=== PATIENT | male | born 1955 | race Caucasian/White ===

== ENCOUNTER 2021-03-21 18:07 | Observation (INO) | payer OTHER ==
[2021-03-21 18:53] VITALS: BMI 22.4
[2021-03-21 21:16] LABS: BASO % 0.5 % (0-2.0); EOS % 0.6 % (0-4.5); HEMATOCRIT 47.7 % (35.4-49); HEMOGLOBIN 16.1 GM/dL (11.7-16.9); LYMPH % 14.9 % (8-40); MCH 30.1 pg (25.7-33.7); MCHC 33.7 g/dl (32.0-35.9); MEAN CELL VOLUME 89.2 fl (80-96); MEAN PLT VOLUME 9.1 fl (7.5-11.1); PLATELET COUNT 169 10^3/uL (134-434); RBC 5.34 M/mm3 (4.00-5.60); RDW 13.5 % (11.9-15.9); WHITE BLOOD COUNT 6.1 K/mm3 (4.0-10.0)
[2021-03-21 21:33] LABS: CHLORIDE 106 mmol/L (98-107); SODIUM 141 mmol/L (136-145)
[2021-03-21 21:35] LABS: CALCIUM 8.8 mg/dL (8.5-10.1)
[2021-03-21 21:36] LABS: ALBUMIN 3.8 g/dl (3.4-5.0); ANION GAP 9 MMOL/L (8-16); BLOOD UREA NITROGEN 23.5 mg/dL (7-18); CO2 27 mmol/L (21-32); GLUCOSE,RANDOM 134 mg/dL (74-106)
[2021-03-21 21:39] LABS: CREATININE 1.5 mg/dL (0.55-1.3); SGOT/AST 26 U/L (15-37); SGPT/ALT 30 U/L (13-61)
[2021-03-21 21:41] LABS: BILIRUBIN,TOTAL 0.7 mg/dL (0.2-1); TOT PROT 7.4 g/dl (6.4-8.2)
[2021-03-21 21:42] LABS: ALK PHOS 75 U/L (45-117)
[2021-03-21] MEDS ORDERED: SODIUM CHLORIDE 0.9% 500 ML INFUS.BAG IV ONE (22:10)
[2021-03-22] MEDS ORDERED: LORazepam 1 MG TABLET PO PRN (04:43)
[2021-03-22] MEDS: ENOXAPARIN NA (PORCINE) 40 MG/0.4 ML DISP.SYRIN SQ SCH (10:19)
[2021-03-22] MEDS: CHOLECALCIFEROL (VIT D3) 1,000 UNIT (25 MCG) TABLET PO SCH (11:00)
[2021-03-22] MEDS: LISINOPRIL 10 MG TABLET PO SCH (11:00)
[2021-03-23 08:58] LABS: BASO % 0.3 % (0-2.0); EOS % 2.2 % (0-4.5); HEMATOCRIT 43.7 % (35.4-49); HEMOGLOBIN 14.2 GM/dL (11.7-16.9); MCH 29.2 pg (25.7-33.7); MCHC 32.6 g/dl (32.0-35.9); MEAN CELL VOLUME 89.6 fl (80-96); MEAN PLT VOLUME 9.6 fl (7.5-11.1); MONO % 7.1 % (3.8-10.2); NEUT % 76.4 % (42.8-82.8); PLATELET COUNT 163 10^3/uL (134-434); RBC 4.88 M/mm3 (4.00-5.60); RDW 13.5 % (11.9-15.9); WHITE BLOOD COUNT 7.9 K/mm3 (4.0-10.0)
[2021-03-23 09:17] LABS: CALCIUM 8.6 mg/dL (8.5-10.1)
[2021-03-23 09:18] LABS: ALBUMIN 3.1 g/dl (3.4-5.0); BLOOD UREA NITROGEN 20.8 mg/dL (7-18); MAGNESIUM 2.6 mg/dL (1.8-2.4)
[2021-03-23 09:20] LABS: CREATININE 1.4 mg/dL (0.55-1.3)
[2021-03-23 09:21] LABS: PHOSPHOROUS 2.4 mg/dL (2.5-4.9)
[2021-03-23 09:22] LABS: BILIRUBIN,TOTAL 0.9 mg/dL (0.2-1)
[2021-03-23] MEDS: ENOXAPARIN NA (PORCINE) 40 MG/0.4 ML DISP.SYRIN SQ SCH (11:06)
[2021-03-23] MEDS: CHOLECALCIFEROL (VIT D3) 1,000 UNIT (25 MCG) TABLET PO SCH (11:06)
[2021-03-23] MEDS: LISINOPRIL 10 MG TABLET PO SCH (11:06)
[2021-03-24 07:19] VITALS: TEMP 98.2
[2021-03-24 09:28] LABS: BASO % 0.4 % (0-2.0); EOS % 3.7 % (0-4.5); HEMATOCRIT 46.6 % (35.4-49); HEMOGLOBIN 15.3 GM/dL (11.7-16.9); LYMPH % 19.5 % (8-40); MCH 29.5 pg (25.7-33.7); MEAN CELL VOLUME 89.4 fl (80-96); MEAN PLT VOLUME 9.5 fl (7.5-11.1); MONO % 10.3 % (3.8-10.2); NEUT % 66.1 % (42.8-82.8); PLATELET COUNT 174 10^3/uL (134-434); RBC 5.21 M/mm3 (4.00-5.60); RDW 13.5 % (11.9-15.9); WHITE BLOOD COUNT 4.8 K/mm3 (4.0-10.0)
[2021-03-24 09:48] LABS: ALBUMIN 3.3 g/dl (3.4-5.0); BLOOD UREA NITROGEN 18.6 mg/dL (7-18); CALCIUM 8.7 mg/dL (8.5-10.1)
[2021-03-24 09:49] LABS: MAGNESIUM 2.3 mg/dL (1.8-2.4)
[2021-03-24 09:51] LABS: CREATININE 1.3 mg/dL (0.55-1.3); PHOSPHOROUS 2.7 mg/dL (2.5-4.9)
[2021-03-24 09:53] LABS: BILIRUBIN,TOTAL 0.8 mg/dL (0.2-1); TOT PROT 6.6 g/dl (6.4-8.2)
[2021-03-24] MEDS: ENOXAPARIN NA (PORCINE) 40 MG/0.4 ML DISP.SYRIN SQ SCH (10:59)
[2021-03-24] MEDS: LISINOPRIL 10 MG TABLET PO SCH (11:00)
[2021-03-24] MEDS: CHOLECALCIFEROL (VIT D3) 1,000 UNIT (25 MCG) TABLET PO SCH (11:00)
[2021-03-24 15:51] VITALS: BP 121/76; PULSE 58
== END 2021-03-24 15:30 ==
LOC: JER 18:07 → JERBED 03-22 00:39 → J7W 03-22 02:24
PROVIDERS: ADMIT Hospitalist; ATTEND Internal Medicine
PROC: 3E023GC Introduction of Other Therapeutic Substance into Muscle, Percutaneous Approach (ICD-10-PCS; principal; 2021-03-22)
PROC: 3E0337Z Introduction of Electrolytic and Water Balance Substance into Peripheral Vein, Percutaneous Approach (ICD-10-PCS; 2021-03-22)
DX: U07.1 COVID-19 (principal); R05.9 Cough, unspecified; I10 Essential (primary) hypertension; F89 Unspecified disorder of psychological development; H91.90 Unspecified hearing loss, unspecified ear; Z29.9 Encounter for prophylactic measures, unspecified; N17.9 Acute kidney failure, unspecified
CPT/HCPCS: 36415; 71045-TC-FY; 80053; 82550; 82728; 83735; 84100; 84484; 85025; 85379; 86140; 93005; 93010; 96372; 97116-GP; 97161-GP; 99285-25; C9803; G0378; U0003; U0005

== ENCOUNTER 2023-05-14 20:44 | Observation (INO) | payer OTHER, BC ==
[2023-05-14 21:10] VITALS: BMI 22.4
[2023-05-14 23:21] LABS: HEMATOCRIT 46.4 % (35.4-49); MCH 30.9 pg (25.7-33.7); MCHC 34.4 g/dl (32.0-35.9); MEAN CELL VOLUME 89.7 fl (80-96); MEAN PLT VOLUME 8.9 fl (7.5-11.1); PLATELET COUNT 179 10^3/uL (134-434); RBC 5.17 M/mm3 (4.00-5.60); RDW 14.2 % (11.9-15.9); WHITE BLOOD COUNT 7.2 K/mm3 (4.0-10.0)
[2023-05-14 23:35] LABS: ALBUMIN 3.6 g/dl (3.4-5.0); BLOOD UREA NITROGEN 22.6 mg/dL (7-18); CALCIUM 8.8 mg/dL (8.5-10.1)
[2023-05-14 23:38] LABS: CREATININE 1.6 mg/dL (0.55-1.3)
[2023-05-14 23:40] LABS: BILIRUBIN,TOTAL 0.6 mg/dL (0.2-1)
[2023-05-15] MEDS: SODIUM CHLORIDE 0.9% 500 ML INFUS.BAG IV ONE (00:38)
[2023-05-15 02:31] LABS: EPI CELLS 4 /uL (0-25.1); HYALINE CASTS 0 /uL (0-3.1); URINE APPEARANCE CLEAR; URINE BACTERIA 3 /uL (0-1359); URINE BILIRUBIN NEGATIVE (NEGATIVE); URINE COLOR YELLOW; URINE GLUCOSE (UA) NEGATIVE (NEGATIVE); URINE KETONE NEGATIVE (NEGATIVE); URINE LEUK ESTERASE TRACE (NEGATIVE); URINE NITRITE NEGATIVE (NEGATIVE); URINE PROTEIN NEGATIVE (NEGATIVE); URINE RBC 8 /uL (0-23.9); URINE UROBILINOGEN 0.2 mg/dL (0.2-1.0); URINE WBC 21 /uL (0-25.8)
[2023-05-15] MEDS ORDERED: ACETAMINOPHEN 1000 MG/100 ML BAG IVPB PRN (02:36)
[2023-05-15] MEDS: SODIUM CHLORIDE 0.45% 1,000 ML IV SCH (04:57)
[2023-05-15] MEDS: ASCORBIC ACID 500 MG TABLET (FP) PO SCH (10:24)
[2023-05-15] MEDS: LISINOPRIL 10 MG TABLET PO SCH (10:24)
[2023-05-15] MEDS: CHOLECALCIFEROL (VIT D3) 1,000 UNIT (25 MCG) TABLET PO SCH (10:24)
[2023-05-16 07:54] LABS: POTASSIUM 4.5 mmol/L (3.5-5.1)
[2023-05-16 07:57] LABS: CALCIUM 8.4 mg/dL (8.5-10.1)
[2023-05-16 07:58] LABS: BLOOD UREA NITROGEN 21.8 mg/dL (7-18); MAGNESIUM 2.2 mg/dL (1.8-2.4)
[2023-05-16 08:01] LABS: CREATININE 1.4 mg/dL (0.55-1.3); PHOSPHOROUS 3.6 mg/dL (2.5-4.9)
[2023-05-16 08:40] LABS: BASO % 0.7 % (0-2.0); EOS % 4.2 % (0-4.5); HEMATOCRIT 44.1 % (35.4-49); HEMOGLOBIN 15.2 GM/dL (11.7-16.9); LYMPH % 25.3 % (8-40); MCH 30.9 pg (25.7-33.7); MCHC 34.4 g/dl (32.0-35.9); MEAN CELL VOLUME 89.8 fl (80-96); MONO % 9.3 % (3.8-10.2); NEUT % 60.5 % (42.8-82.8); PLATELET COUNT 169 10^3/uL (134-434); RBC 4.92 M/mm3 (4.00-5.60); RDW 14.3 % (11.9-15.9); WHITE BLOOD COUNT 5.3 K/mm3 (4.0-10.0)
[2023-05-16] MEDS: ACETAMINOPHEN 325 MG TABLET (FP) PO PRN (10:04)
[2023-05-16] MEDS: CEPHALEXIN MONOHYDRATE 500 MG CAPSULE (UD) PO SCH (13:10)
[2023-05-16 14:30] VITALS: BP 121/59; PULSE 56; RESP 17; TEMP 97.4
[2023-05-16] MEDS: ACETAMINOPHEN 1000 MG/100 ML BAG IVPB ONE (14:31)
[2023-05-16] MEDS: LIDOCAINE 4% PATCH TP ONE (14:48)
[2023-05-16] MEDS ORDERED: LIDOCAINE PATCH REMOVAL MC SCH (22:00)
== END 2023-05-16 18:00 | disposition short-term general hospital (02) ==
LOC: JER 20:44 → JERBED 05-15 00:56 → J4S 05-15 06:16
PROVIDERS: ADMIT Internal Medicine; ATTEND Internal Medicine
PROC: 3E033NZ Introduction of Analgesics, Hypnotics, Sedatives into Peripheral Vein, Percutaneous Approach (ICD-10-PCS; principal; 2023-05-15)
PROC: 3E0337Z Introduction of Electrolytic and Water Balance Substance into Peripheral Vein, Percutaneous Approach (ICD-10-PCS; 2023-05-15)
PROC: 3E033GC Introduction of Other Therapeutic Substance into Peripheral Vein, Percutaneous Approach (ICD-10-PCS; 2023-05-15)
DX: M79.604 Pain in right leg (principal); W18.39XA Other fall on same level, initial encounter; F81.9 Developmental disorder of scholastic skills, unspecified; Y93.89 Activity, other specified; Y92.099 Unspecified place in other non-institutional residence as the place of occurrence of the external cause; I10 Essential (primary) hypertension; N39.0 Urinary tract infection, site not specified; R29.6 Repeated falls; N17.9 Acute kidney failure, unspecified; H04.129 Dry eye syndrome of unspecified lacrimal gland; H91.90 Unspecified hearing loss, unspecified ear
CPT/HCPCS: 0241U-QW; 36415; 70450-TC; 71045-TC-FY; 72125-TC; 72128-TC; 72131-TC; 73552-TC-RT-FY; 80048; 80053; 81003; 83735; 84100; 84484; 85025; 85027; 87086; 87633; 93005; 93010; 93306-TC; 96361; 96374; 96375; 97116-GP; 97161-GP; 99285-25; G0378; J0131

== ENCOUNTER 2024-03-27 06:55 | Inpatient (IN) | payer OTHER, BC ==
[2024-03-27] MEDS ORDERED: ACETAMINOPHEN INJECTION 100 ML ONE (08:40)
[2024-03-27] MEDS: ACETAMINOPHEN 1000 MG/100 ML BAG IVPB ONE (08:45)
[2024-03-27 08:49] LABS: VENOUS BASE EXCESS 0.1 mmol/L (-2-2); VENOUS O2 SATURATION 69.2 % (70-80); VENOUS PH 7.438 (7.310-7.410)
[2024-03-27 08:53] LABS: INR 1.13 (0.83-1.09); PROTHROMBIN TIME (PATIENT) 12.7 SEC (9.7-13.0)
[2024-03-27 08:56] LABS: ACTIVATED PTT 29.1 SECONDS (25.2-36.5)
[2024-03-27 09:13] LABS: POTASSIUM 3.9 mmol/L (3.5-5.1)
[2024-03-27 09:15] LABS: HEMATOCRIT 45.7 % (35.4-49); HEMOGLOBIN 15.2 GM/dL (11.7-16.9); MCH 29.7 pg (25.7-33.7); MCHC 33.2 g/dl (32.0-35.9); MEAN CELL VOLUME 89.3 fl (80-96); MEAN PLT VOLUME 9.6 fl (7.5-11.1); PLATELET COUNT 153 10^3/uL (134-434); RBC 5.12 M/mm3 (4.00-5.60); WHITE BLOOD COUNT 8.5 K/mm3 (4.0-10.0)
[2024-03-27 09:16] LABS: ALBUMIN 3.6 g/dl (3.4-5.0); BLOOD UREA NITROGEN 16.6 mg/dL (7-18); CALCIUM 9.2 mg/dL (8.5-10.1); MAGNESIUM 2.1 mg/dL (1.8-2.4)
[2024-03-27 09:19] LABS: CREATININE 1.9 mg/dL (0.55-1.3)
[2024-03-27 09:20] LABS: BILIRUBIN,TOTAL 0.8 mg/dL (0.2-1)
[2024-03-27 09:21] LABS: TOT PROT 6.8 g/dl (6.4-8.2)
[2024-03-27 09:33] LABS: LACTIC ACID 3.4 mmol/L (0.4-2.0)
[2024-03-27 09:56] LABS: EPI CELLS 24 /uL (0-25.1); HYALINE CASTS 3 /uL (0-3.1); PH,URINE 5.5 (5.0-8.0); URINE APPEARANCE CLEAR; URINE BACTERIA 9 /uL (0-1359); URINE BILIRUBIN NEGATIVE (NEGATIVE); URINE COLOR YELLOW; URINE GLUCOSE (UA) NEGATIVE (NEGATIVE); URINE KETONE TRACE (NEGATIVE); URINE LEUK ESTERASE NEGATIVE (NEGATIVE); URINE NITRITE NEGATIVE (NEGATIVE); URINE PROTEIN 1+ (NEGATIVE); URINE RBC 52 /uL (0-23.9); URINE UROBILINOGEN 0.2 mg/dL (0.2-1.0); URINE WBC 21 /uL (0-25.8)
[2024-03-27] MEDS: SODIUM CHLORIDE 0.9% 500 ML INFUS.BAG IV ONE (10:15)
[2024-03-27] MEDS ORDERED: OSELTAMIVIR PHOSPHATE 75 MG CAPSULE ONE (10:35)
[2024-03-27] MEDS: OSELTAMIVIR PHOSPHATE 75 MG CAPSULE PO ONE (11:05)
[2024-03-27] MEDS ORDERED: HEPARIN NA (PORCINE) 5,000 UNITS/ML 1ML VIAL ONE (13:20)
[2024-03-27] MEDS: HEPARIN NA (PORCINE) 5,000 UNITS/ML 1ML VIAL SQ SCH (13:30)
[2024-03-28 07:53] LABS: HEMATOCRIT 45.2 % (35.4-49); HEMOGLOBIN 14.8 GM/dL (11.7-16.9); MCH 29.4 pg (25.7-33.7); MCHC 32.7 g/dl (32.0-35.9); MEAN PLT VOLUME 9.5 fl (7.5-11.1); PLATELET COUNT 136 10^3/uL (134-434); RBC 5.02 M/mm3 (4.00-5.60); RDW 14.2 % (11.9-15.9); WHITE BLOOD COUNT 5.4 K/mm3 (4.0-10.0)
[2024-03-28 08:11] LABS: POTASSIUM 3.9 mmol/L (3.5-5.1)
[2024-03-28 08:15] LABS: CALCIUM 8.4 mg/dL (8.5-10.1)
[2024-03-28 08:16] LABS: BLOOD UREA NITROGEN 17.9 mg/dL (7-18)
[2024-03-28 08:19] LABS: CREATININE 1.5 mg/dL (0.55-1.3)
[2024-03-28] MEDS ORDERED: ACETAMINOPHEN 325 MG TABLET (FP) PO PRN (10:30)
[2024-03-28] MEDS: ASCORBIC ACID 500 MG TABLET (FP) PO SCH (10:58)
[2024-03-28] MEDS: OSELTAMIVIR PHOSPHATE 30 MG CAPSULE PO SCH (10:58)
[2024-03-29 13:06] LABS: BASO % 0.2 % (0-2.0); EOS % 0.1 % (0-4.5); HEMATOCRIT 49.3 % (35.4-49); HEMOGLOBIN 16.4 GM/dL (11.7-16.9); LYMPH % 8.6 % (8-40); MCH 29.6 pg (25.7-33.7); MCHC 33.3 g/dl (32.0-35.9); MEAN CELL VOLUME 89.1 fl (80-96); MEAN PLT VOLUME 9.8 fl (7.5-11.1); MONO % 11.5 % (3.8-10.2); NEUT % 79.6 % (42.8-82.8); PLATELET COUNT 162 10^3/uL (134-434); RBC 5.54 M/mm3 (4.00-5.60); RDW 14.4 % (11.9-15.9)
[2024-03-29 13:18] LABS: POTASSIUM 4.3 mmol/L (3.5-5.1)
[2024-03-29 13:21] LABS: CALCIUM 8.9 mg/dL (8.5-10.1)
[2024-03-29 13:22] LABS: BLOOD UREA NITROGEN 26.2 mg/dL (7-18)
[2024-03-29 13:25] LABS: CREATININE 2.9 mg/dL (0.55-1.3)
[2024-03-29 20:23] LABS: POTASSIUM 4.1 mmol/L (3.5-5.1)
[2024-03-29 20:24] LABS: CALCIUM 8.6 mg/dL (8.5-10.1)
[2024-03-29 20:28] LABS: CREATININE 3.6 mg/dL (0.55-1.3)
[2024-03-29 20:55] LABS: BLOOD UREA NITROGEN 28.4 mg/dL (7-18)
[2024-03-29] MEDS: SODIUM CHLORIDE 1,000 ML IV SCH (22:19)
[2024-03-30 06:39] LABS: POTASSIUM 4.1 mmol/L (3.5-5.1)
[2024-03-30 06:45] LABS: BLOOD UREA NITROGEN 26.5 mg/dL (7-18); CALCIUM 8.1 mg/dL (8.5-10.1)
[2024-03-30 06:47] LABS: HEMATOCRIT 44.4 % (35.4-49); HEMOGLOBIN 14.6 GM/dL (11.7-16.9); MCH 29.5 pg (25.7-33.7); MCHC 32.9 g/dl (32.0-35.9); MEAN CELL VOLUME 89.7 fl (80-96); MEAN PLT VOLUME 9.6 fl (7.5-11.1); PLATELET COUNT 136 10^3/uL (134-434); RBC 4.95 M/mm3 (4.00-5.60); RDW 13.7 % (11.9-15.9)
[2024-03-30 06:48] LABS: CREATININE 2.5 mg/dL (0.55-1.3)
[2024-03-30 06:49] LABS: BILIRUBIN,TOTAL 0.8 mg/dL (0.2-1); TOT PROT 5.6 g/dl (6.4-8.2)
[2024-03-30 06:52] LABS: ALBUMIN 2.8 g/dl (3.4-5.0)
[2024-03-30] MEDS: TAMSULOSIN HCL 0.4 MG CAP PO ONE (10:45)
[2024-03-30 16:05] VITALS: BMI 24.4
[2024-03-31 08:41] LABS: BASO % 0.5 % (0-2.0); EOS % 5.3 % (0-4.5); HEMATOCRIT 41.6 % (35.4-49); LYMPH % 20.1 % (8-40); MCH 29.8 pg (25.7-33.7); MCHC 33.5 g/dl (32.0-35.9); MEAN CELL VOLUME 88.9 fl (80-96); MEAN PLT VOLUME 9.1 fl (7.5-11.1); MONO % 10.1 % (3.8-10.2); PLATELET COUNT 118 10^3/uL (134-434); RBC 4.69 M/mm3 (4.00-5.60); RDW 14.1 % (11.9-15.9); WHITE BLOOD COUNT 5.9 K/mm3 (4.0-10.0)
[2024-03-31] MEDS: TAMSULOSIN HCL 0.4 MG CAP PO SCH (08:46)
[2024-03-31 09:04] LABS: POTASSIUM 4.2 mmol/L (3.5-5.1)
[2024-03-31 09:10] LABS: CALCIUM 7.9 mg/dL (8.5-10.1)
[2024-03-31 09:11] LABS: ALBUMIN 2.4 g/dl (3.4-5.0); BLOOD UREA NITROGEN 23.4 mg/dL (7-18)
[2024-03-31 09:14] LABS: CREATININE 1.3 mg/dL (0.55-1.3)
[2024-03-31 09:16] LABS: BILIRUBIN,TOTAL 0.7 mg/dL (0.2-1); TOT PROT 5.1 g/dl (6.4-8.2)
[2024-04-01 08:29] LABS: BASO % 0.6 % (0-2.0); EOS % 5.7 % (0-4.5); HEMATOCRIT 43.6 % (35.4-49); HEMOGLOBIN 14.9 GM/dL (11.7-16.9); LYMPH % 21.8 % (8-40); MCHC 34.1 g/dl (32.0-35.9); MEAN PLT VOLUME 9.6 fl (7.5-11.1); MONO % 10.7 % (3.8-10.2); NEUT % 61.2 % (42.8-82.8); PLATELET COUNT 140 10^3/uL (134-434); RBC 4.95 M/mm3 (4.00-5.60); RDW 14.1 % (11.9-15.9); WHITE BLOOD COUNT 4.2 K/mm3 (4.0-10.0)
[2024-04-01 09:17] LABS: BLOOD UREA NITROGEN 22.2 mg/dL (7-18); CALCIUM 8.4 mg/dL (8.5-10.1)
[2024-04-01 09:20] LABS: CREATININE 1.2 mg/dL (0.55-1.3)
[2024-04-01] MEDS: LACTATED RINGERS SOLUTION 1,000 ML/1,000 ML INFUS.BAG IV SCH (21:55)
[2024-04-02 06:59] VITALS: RESP 18
[2024-04-02 07:34] LABS: POTASSIUM 4.2 mmol/L (3.5-5.1)
[2024-04-02 07:42] LABS: CALCIUM 8.4 mg/dL (8.5-10.1)
[2024-04-02 07:43] LABS: ALBUMIN 2.6 g/dl (3.4-5.0); BLOOD UREA NITROGEN 17.8 mg/dL (7-18)
[2024-04-02 07:46] LABS: CREATININE 1.2 mg/dL (0.55-1.3)
[2024-04-02 07:47] LABS: BILIRUBIN,TOTAL 0.8 mg/dL (0.2-1); TOT PROT 5.5 g/dl (6.4-8.2)
[2024-04-02 18:12] VITALS: BP 141/80; PULSE 68; TEMP 97.7
== END 2024-04-02 18:58 | DRG 684 ==
LOC: JER 06:55 → JERBED 10:30 → J7W 18:56 → OBSVTOIN 03-30 11:24
PROVIDERS: ADMIT Internal Medicine; ATTEND Internal Medicine
DX: N17.9 Acute kidney failure, unspecified (principal); J10.1 Influenza due to other identified influenza virus with other respiratory manifestations; N40.1 Benign prostatic hyperplasia with lower urinary tract symptoms; R33.8 Other retention of urine; R62.50 Unspecified lack of expected normal physiological development in childhood; N13.9 Obstructive and reflux uropathy, unspecified; E86.0 Dehydration; I12.9 Hypertensive chronic kidney disease with stage 1 through stage 4 chronic kidney disease, or unspecified chronic kidney disease; N18.9 Chronic kidney disease, unspecified; E78.5 Hyperlipidemia, unspecified; F81.9 Developmental disorder of scholastic skills, unspecified; W06.XXXA Fall from bed, initial encounter; Y92.122 Bedroom in nursing home as the place of occurrence of the external cause; Y99.9 Unspecified external cause status
CPT/HCPCS: 0241U-QW; 36415; 70450-TC; 71045-TC-FY; 72125-TC; 76775-TC; 76856-TC; 80048; 80053; 81003; 82550; 82553; 82803; 82962; 83605; 83735; 84443; 84484; 85025; 85027; 85610; 85730; 86850; 86900; 86901; 87040; 87086; 93005; 93010; 97116-GP; 97161-GP; 99285-25; G0378; J0131; J1644

== ENCOUNTER 2024-04-20 19:12 | Inpatient (IN) | payer OTHER, BC ==
[2024-04-20 21:11] LABS: EPI CELLS 16 /uL (0-25.1); HYALINE CASTS 1 /uL (0-3.1); PH,URINE 5.5 (5.0-8.0); URINE APPEARANCE TURBID; URINE BACTERIA 56 /uL (0-1359); URINE BILIRUBIN NEGATIVE (NEGATIVE); URINE COLOR YELLOW; URINE GLUCOSE (UA) NEGATIVE (NEGATIVE); URINE KETONE TRACE (NEGATIVE); URINE LEUK ESTERASE 3+ (NEGATIVE); URINE NITRITE NEGATIVE (NEGATIVE); URINE PROTEIN 3+ (NEGATIVE); URINE RBC 0 /uL (0-23.9); URINE UROBILINOGEN 0.2 mg/dL (0.2-1.0); URINE WBC 3 /uL (0-25.8)
[2024-04-20 21:31] LABS: BASO % 0.3 % (0-2.0); EOS % 1.4 % (0-4.5); MCH 29.2 pg (25.7-33.7); MCHC 32.7 g/dl (32.0-35.9); MEAN CELL VOLUME 89.3 fl (80-96); MONO % 11.9 % (3.8-10.2); NEUT % 80.4 % (42.8-82.8); RBC 6.16 M/mm3 (4.00-5.60); RDW 14.4 % (11.9-15.9); WHITE BLOOD COUNT 13.2 K/mm3 (4.0-10.0)
[2024-04-20 21:51] LABS: CHLORIDE 98 mmol/L (98-107); SODIUM 136 mmol/L (136-145)
[2024-04-20] MEDS ORDERED: CEFTRIAXONE 1 G/50 ML PREMIX 50 ML IVPB ONE (21:51)
[2024-04-20 21:52] LABS: CALCIUM 8.5 mg/dL (8.5-10.1); POTASSIUM 6.1 mmol/L (3.5-5.1)
[2024-04-20 21:53] LABS: ALBUMIN 2.8 g/dl (3.4-5.0); ANION GAP 18 mmol/L (4-13); CO2 20 mmol/L (21-32); GLUCOSE,RANDOM 123 mg/dL (74-106)
[2024-04-20 21:56] LABS: SGOT/AST 21 U/L (15-37); SGPT/ALT 56 U/L (13-61)
[2024-04-20 21:58] LABS: BILIRUBIN,TOTAL 0.8 mg/dL (0.2-1); CREATININE 14.2 mg/dL (0.55-1.3)
[2024-04-20] MEDS: SODIUM CHLORIDE 0.9% 500 ML INFUS.BAG IV ONE ×2 (21:58→22:41)
[2024-04-20] MEDS: CEFTRIAXONE 1 GM in DEXTROSE 5%-WATER - 50 ML IVPB ONE (21:58)
[2024-04-20 21:59] LABS: ALK PHOS 59 U/L (45-117)
[2024-04-20 22:08] LABS: INR 0.97 (0.83-1.09); PROTHROMBIN TIME (PATIENT) 10.7 SEC (9.7-13.0)
[2024-04-20] MEDS ORDERED: DEXTROSE 50%-WATER 25 GM/50 ML DISP.SYRIN ONE (22:30)
[2024-04-20 22:31] LABS: ANISOCYTOSIS 1+; MACROCYTOSIS 0; OVALOCYTE 1+
[2024-04-20 22:32] LABS: PLATELET COUNT 48 10^3/uL (134-434)
[2024-04-20] MEDS ORDERED: INSULIN REGULAR HUMAN 100 UNITS/ML *VIAL ONE (22:32)
[2024-04-20 22:33] LABS: MEAN PLT VOLUME 12.6 fl (7.5-11.1)
[2024-04-20] MEDS: DEXTROSE 50%-WATER 25 GM/50 ML DISP.SYRIN IVPUSH ONE (22:41)
[2024-04-20] MEDS: INSULIN REGULAR HUMAN 100 UNITS/ML *VIAL IVPUSH ONE (22:41)
[2024-04-20] MEDS: CALCIUM GLUCONATE 10% - 1,000 MG/10 ML VIAL IVPUSH ONE (22:42)
[2024-04-21 01:04] LABS: CHLORIDE 107 mmol/L (98-107); POTASSIUM 5.3 mmol/L (3.5-5.1); SODIUM 141 mmol/L (136-145)
[2024-04-21 01:05] LABS: CALCIUM 7.3 mg/dL (8.5-10.1)
[2024-04-21 01:06] LABS: ANION GAP 18 mmol/L (4-13); CO2 16 mmol/L (21-32); GLUCOSE,RANDOM 95 mg/dL (74-106)
[2024-04-21 01:13] LABS: BLOOD UREA NITROGEN 161.7 mg/dL (7-18); CREATININE 13.8 mg/dL (0.55-1.3)
[2024-04-21] MEDS: SODIUM CHLORIDE 1,000 ML IV SCH ×2 (06:55→22:53)
[2024-04-21 07:28] LABS: HEMATOCRIT 50.5 % (35.4-49); HEMOGLOBIN 16.6 GM/dL (11.7-16.9); MCH 29.5 pg (25.7-33.7); MCHC 32.8 g/dl (32.0-35.9); MEAN CELL VOLUME 89.9 fl (80-96); MEAN PLT VOLUME 10.9 fl (7.5-11.1); RBC 5.61 M/mm3 (4.00-5.60); RDW 14.5 % (11.9-15.9); WHITE BLOOD COUNT 11.4 K/mm3 (4.0-10.0)
[2024-04-21 07:43] LABS: CHLORIDE 104 mmol/L (98-107); POTASSIUM 5.4 mmol/L (3.5-5.1); SODIUM 141 mmol/L (136-145)
[2024-04-21 07:44] LABS: PLATELET COUNT 36 10^3/uL (134-434)
[2024-04-21 07:45] LABS: CALCIUM 7.9 mg/dL (8.5-10.1)
[2024-04-21 07:46] LABS: ALBUMIN 2.5 g/dl (3.4-5.0); ANION GAP 22 mmol/L (4-13); CO2 15 mmol/L (21-32); GLUCOSE,RANDOM 85 mg/dL (74-106)
[2024-04-21 07:49] LABS: SGOT/AST 19 U/L (15-37); SGPT/ALT 46 U/L (13-61)
[2024-04-21 07:50] LABS: BILIRUBIN,TOTAL 0.6 mg/dL (0.2-1)
[2024-04-21 07:52] LABS: ALK PHOS 50 U/L (45-117)
[2024-04-21 07:58] LABS: BLOOD UREA NITROGEN 171.7 mg/dL (7-18); CREATININE 13.8 mg/dL (0.55-1.3)
[2024-04-21] MEDS: SODIUM CHLORIDE 0.45% 1,000 ML IV SCH (10:41)
[2024-04-21] MEDS: SODIUM CHLORIDE 500 ML IV STA (10:42)
[2024-04-21] MEDS: SODIUM ZIRCONIUM CYCLOSILICATE (LOKELMA) 5 GM PACKET PO SCH ×2 (10:42→22:53)
[2024-04-21 11:37] LABS: ANISOCYTOSIS 0; HELMET CELLS 0; HOWELL-JOLLY BODIES 0; MACROCYTOSIS 0; OVALOCYTE 0; ROULEAU 0; SICKELED CELLS 0; TARGET CELLS 0; TEAR DROP CELLS 0; TOXIC GRANULATION 0
[2024-04-21] MEDS: SODIUM BICARBONATE 650 MG TABLET PO SCH (13:23)
[2024-04-21 15:39] LABS: BASO % 0.2 % (0-2.0); EOS % 2.7 % (0-4.5); HEMATOCRIT 50.8 % (35.4-49); HEMOGLOBIN 16.4 GM/dL (11.7-16.9); LYMPH % 6.5 % (8-40); MCH 29.3 pg (25.7-33.7); MCHC 32.2 g/dl (32.0-35.9); MEAN PLT VOLUME 10.9 fl (7.5-11.1); MONO % 15.3 % (3.8-10.2); NEUT % 75.3 % (42.8-82.8); PLATELET COUNT 50 10^3/uL (134-434); RBC 5.58 M/mm3 (4.00-5.60); RDW 14.7 % (11.9-15.9); WHITE BLOOD COUNT 14.2 K/mm3 (4.0-10.0)
[2024-04-21 16:02] LABS: CHLORIDE 107 mmol/L (98-107); POTASSIUM 5.6 mmol/L (3.5-5.1); SODIUM 141 mmol/L (136-145)
[2024-04-21 16:08] LABS: ALBUMIN 2.4 g/dl (3.4-5.0); ANION GAP 21 mmol/L (4-13); CO2 14 mmol/L (21-32); GLUCOSE,RANDOM 101 mg/dL (74-106)
[2024-04-21 16:11] LABS: SGOT/AST 17 U/L (15-37); SGPT/ALT 41 U/L (13-61)
[2024-04-21 16:12] LABS: BILIRUBIN,TOTAL 0.6 mg/dL (0.2-1)
[2024-04-21 16:13] LABS: TOT PROT 5.8 g/dl (6.4-8.2)
[2024-04-21 16:14] LABS: ALK PHOS 51 U/L (45-117)
[2024-04-21 16:27] LABS: BLOOD UREA NITROGEN 175.6 mg/dL (7-18)
[2024-04-22 07:35] LABS: HEMATOCRIT 43.3 % (35.4-49); HEMOGLOBIN 14.2 GM/dL (11.7-16.9); MCH 29.3 pg (25.7-33.7); MCHC 32.8 g/dl (32.0-35.9); MEAN CELL VOLUME 89.1 fl (80-96); MEAN PLT VOLUME 11.3 fl (7.5-11.1); PLATELET COUNT 65 10^3/uL (134-434); RBC 4.86 M/mm3 (4.00-5.60); RDW 14.4 % (11.9-15.9); WHITE BLOOD COUNT 11.2 K/mm3 (4.0-10.0)
[2024-04-22 07:57] LABS: CHLORIDE 108 mmol/L (98-107); POTASSIUM 5.2 mmol/L (3.5-5.1); SODIUM 141 mmol/L (136-145)
[2024-04-22 08:17] LABS: CALCIUM 7.6 mg/dL (8.5-10.1)
[2024-04-22 08:18] LABS: ANION GAP 22 mmol/L (4-13); CO2 11 mmol/L (21-32); GLUCOSE,RANDOM 97 mg/dL (74-106)
[2024-04-22 08:19] LABS: SGOT/AST 16 U/L (15-37); SGPT/ALT 32 U/L (13-61)
[2024-04-22 08:20] LABS: BILIRUBIN,TOTAL 0.5 mg/dL (0.2-1)
[2024-04-22 08:22] LABS: ALK PHOS 46 U/L (45-117)
[2024-04-22 08:30] LABS: BLOOD UREA NITROGEN 179.7 mg/dL (7-18); CREATININE 14.1 mg/dL (0.55-1.3)
[2024-04-22] MEDS ORDERED: SODIUM CHLORIDE 250 ML IV PRN (11:01)
[2024-04-23 08:42] LABS: HEMOGLOBIN 15.6 GM/dL (11.7-16.9); MCHC 34.7 g/dl (32.0-35.9); MEAN CELL VOLUME 86.5 fl (80-96); MEAN PLT VOLUME 10.4 fl (7.5-11.1); PLATELET COUNT 88 10^3/uL (134-434); RBC 5.21 M/mm3 (4.00-5.60); RDW 14.5 % (11.9-15.9); WHITE BLOOD COUNT 12.3 K/mm3 (4.0-10.0)
[2024-04-23 09:04] LABS: CHLORIDE 104 mmol/L (98-107); POTASSIUM 4.2 mmol/L (3.5-5.1); SODIUM 141 mmol/L (136-145)
[2024-04-23 09:11] LABS: ANION GAP 17 mmol/L (4-13); CALCIUM 7.5 mg/dL (8.5-10.1); CO2 20 mmol/L (21-32); GLUCOSE,RANDOM 112 mg/dL (74-106)
[2024-04-23 09:14] LABS: SGOT/AST 14 U/L (15-37); SGPT/ALT 28 U/L (13-61)
[2024-04-23 09:16] LABS: BILIRUBIN,TOTAL 0.8 mg/dL (0.2-1); TOT PROT 5.4 g/dl (6.4-8.2)
[2024-04-23 09:17] LABS: ALK PHOS 49 U/L (45-117)
[2024-04-23 09:26] LABS: BLOOD UREA NITROGEN 118.1 mg/dL (7-18); CREATININE 10.7 mg/dL (0.55-1.3)
[2024-04-23] MEDS: HEPARIN NA (PORCINE) 5,000 UNITS/ML 1ML VIAL IVPUSH ONE (11:00)
[2024-04-23] MEDS ORDERED: SODIUM CHLORIDE 250 ML IV PRN (12:00)
[2024-04-23] MEDS: SODIUM CHLORIDE 0.45% 1,000 ML IV SCH (15:47)
[2024-04-23] MEDS: ACETAMINOPHEN 325 MG TABLET (FP) PO ONE (23:03)
[2024-04-23] MEDS: MELATONIN 5 MG TABLETS PO ONE (23:30)
[2024-04-24] MEDS: SODIUM ZIRCONIUM CYCLOSILICATE (LOKELMA) 5 GM PACKET PO SCH (09:20)
[2024-04-25 08:15] LABS: HEMATOCRIT 39.7 % (35.4-49); HEMOGLOBIN 13.3 GM/dL (11.7-16.9); MCH 29.5 pg (25.7-33.7); MCHC 33.5 g/dl (32.0-35.9); MEAN CELL VOLUME 88.2 fl (80-96); MEAN PLT VOLUME 9.9 fl (7.5-11.1); PLATELET COUNT 142 10^3/uL (134-434); RDW 14.1 % (11.9-15.9); WHITE BLOOD COUNT 12.8 K/mm3 (4.0-10.0)
[2024-04-25 08:43] LABS: CHLORIDE 104 mmol/L (98-107); POTASSIUM 3.9 mmol/L (3.5-5.1); SODIUM 138 mmol/L (136-145)
[2024-04-25 08:51] LABS: ANION GAP 11 mmol/L (4-13); CALCIUM 7.4 mg/dL (8.5-10.1); CO2 23 mmol/L (21-32); GLUCOSE,RANDOM 106 mg/dL (74-106)
[2024-04-25 08:52] LABS: ALBUMIN 1.8 g/dl (3.4-5.0); BLOOD UREA NITROGEN 83.8 mg/dL (7-18)
[2024-04-25 08:55] LABS: SGOT/AST 11 U/L (15-37); SGPT/ALT 19 U/L (13-61)
[2024-04-25 08:56] LABS: BILIRUBIN,TOTAL 0.5 mg/dL (0.2-1); TOT PROT 4.8 g/dl (6.4-8.2)
[2024-04-25 08:57] LABS: ALK PHOS 45 U/L (45-117); CREATININE 7.6 mg/dL (0.55-1.3)
[2024-04-25 11:40] LABS: ANISOCYTOSIS 0; HELMET CELLS 0; HOWELL-JOLLY BODIES 0; MACROCYTOSIS 0; OVALOCYTE 0; ROULEAU 0; SICKELED CELLS 0; TARGET CELLS 0; TEAR DROP CELLS 0; TOXIC GRANULATION 0
[2024-04-26 11:49] LABS: POTASSIUM 3.3 mmol/L (3.5-5.1)
[2024-04-26 11:50] LABS: BASO % 0.5 % (0-2.0); EOS % 2.2 % (0-4.5); HEMATOCRIT 40.5 % (35.4-49); HEMOGLOBIN 13.2 GM/dL (11.7-16.9); LYMPH % 6.5 % (8-40); MCH 29.1 pg (25.7-33.7); MCHC 32.7 g/dl (32.0-35.9); MEAN CELL VOLUME 89.1 fl (80-96); MEAN PLT VOLUME 9.6 fl (7.5-11.1); NEUT % 84.8 % (42.8-82.8); PLATELET COUNT 207 10^3/uL (134-434); RBC 4.55 M/mm3 (4.00-5.60); RDW 13.7 % (11.9-15.9); WHITE BLOOD COUNT 13.3 K/mm3 (4.0-10.0)
[2024-04-26 11:51] LABS: ALBUMIN 2.1 g/dl (3.4-5.0); CALCIUM 7.7 mg/dL (8.5-10.1)
[2024-04-26 11:52] LABS: BLOOD UREA NITROGEN 77.4 mg/dL (7-18)
[2024-04-26 11:55] LABS: CREATININE 6.8 mg/dL (0.55-1.3); PHOSPHOROUS 5.5 mg/dL (2.5-4.9)
[2024-04-26 11:56] LABS: BILIRUBIN,TOTAL 0.5 mg/dL (0.2-1); TOT PROT 5.2 g/dl (6.4-8.2)
[2024-04-26] MEDS: POTASSIUM CHLORIDE ORAL LIQUID 20 MEQ/15 ML PO ONE (12:40)
[2024-04-26 23:06] LABS: ANTIGLOMERULAR BASEMENT MEN.AB <0.2 units (0.0-0.9); C-ANCA <1:20 titer (Neg:<1:20)
[2024-04-27 08:31] LABS: BASO % 1.3 % (0-2.0); EOS % 1.3 % (0-4.5); HEMATOCRIT 37.3 % (35.4-49); HEMOGLOBIN 12.4 GM/dL (11.7-16.9); LYMPH % 6.6 % (8-40); MCH 29.4 pg (25.7-33.7); MCHC 33.3 g/dl (32.0-35.9); MEAN CELL VOLUME 88.4 fl (80-96); MEAN PLT VOLUME 9.4 fl (7.5-11.1); MONO % 7.1 % (3.8-10.2); NEUT % 83.7 % (42.8-82.8); PLATELET COUNT 200 10^3/uL (134-434); RBC 4.22 M/mm3 (4.00-5.60); RDW 13.8 % (11.9-15.9); WHITE BLOOD COUNT 14.5 K/mm3 (4.0-10.0)
[2024-04-27 08:47] LABS: POTASSIUM 3.5 mmol/L (3.5-5.1)
[2024-04-27 08:51] LABS: CALCIUM 7.6 mg/dL (8.5-10.1)
[2024-04-27 08:52] LABS: ALBUMIN 1.9 g/dl (3.4-5.0); BLOOD UREA NITROGEN 66.2 mg/dL (7-18)
[2024-04-27 08:55] LABS: CREATININE 5.8 mg/dL (0.55-1.3); PHOSPHOROUS 5.4 mg/dL (2.5-4.9)
[2024-04-27 08:56] LABS: BILIRUBIN,TOTAL 0.6 mg/dL (0.2-1); TOT PROT 4.8 g/dl (6.4-8.2)
[2024-04-27 19:39] VITALS: BMI 23.1
[2024-04-28 08:07] LABS: POTASSIUM 3.5 mmol/L (3.5-5.1)
[2024-04-28 08:11] LABS: BLOOD UREA NITROGEN 52.5 mg/dL (7-18); CALCIUM 7.4 mg/dL (8.5-10.1)
[2024-04-28 08:16] LABS: CREATININE 4.4 mg/dL (0.55-1.3)
[2024-04-28 08:17] LABS: BILIRUBIN,TOTAL 0.6 mg/dL (0.2-1); TOT PROT 5.1 g/dl (6.4-8.2)
[2024-04-29 08:12] LABS: EOS % 1.8 % (0-4.5); HEMATOCRIT 34.4 % (35.4-49); HEMOGLOBIN 11.4 GM/dL (11.7-16.9); LYMPH % 8.2 % (8-40); MCH 29.5 pg (25.7-33.7); MCHC 33.2 g/dl (32.0-35.9); MEAN CELL VOLUME 88.8 fl (80-96); MEAN PLT VOLUME 9.2 fl (7.5-11.1); MONO % 8.9 % (3.8-10.2); NEUT % 80.1 % (42.8-82.8); PLATELET COUNT 231 10^3/uL (134-434); RBC 3.88 M/mm3 (4.00-5.60); RDW 13.5 % (11.9-15.9); WHITE BLOOD COUNT 11.3 K/mm3 (4.0-10.0)
[2024-04-29 08:28] LABS: POTASSIUM 3.5 mmol/L (3.5-5.1)
[2024-04-29 08:45] LABS: BLOOD UREA NITROGEN 42.4 mg/dL (7-18); CALCIUM 7.7 mg/dL (8.5-10.1)
[2024-04-29 08:47] LABS: TOT PROT 5.1 g/dl (6.4-8.2)
[2024-04-29 08:49] LABS: CREATININE 3.5 mg/dL (0.55-1.3)
[2024-04-29 08:50] LABS: BILIRUBIN,TOTAL 0.6 mg/dL (0.2-1)
[2024-04-29 15:36] VITALS: RESP 18
[2024-04-29 19:52] VITALS: PULSE 69
[2024-04-29 21:15] VITALS: BP 132/70; TEMP 97.4
== END 2024-04-29 20:45 | DRG 683 ==
LOC: JER 19:12 → JERBED 22:09 → J4W 04-21 05:12
PROVIDERS: ADMIT Student in an Organized Health Care Education/Training Program; ATTEND Internal Medicine
PROC: 05HM33Z Insertion of Infusion Device into Right Internal Jugular Vein, Percutaneous Approach (ICD-10-PCS; principal; 2024-04-22)
PROC: B543ZZA Ultrasonography of Right Jugular Veins, Guidance (ICD-10-PCS; 2024-04-22)
PROC: 06HM33Z Insertion of Infusion Device into Right Femoral Vein, Percutaneous Approach (ICD-10-PCS; 2024-04-22)
DX: N17.9 Acute kidney failure, unspecified (principal); N39.0 Urinary tract infection, site not specified; E87.5 Hyperkalemia; D69.6 Thrombocytopenia, unspecified; F81.9 Developmental disorder of scholastic skills, unspecified; E86.0 Dehydration; R19.7 Diarrhea, unspecified; R19.5 Other fecal abnormalities; I95.9 Hypotension, unspecified; I12.9 Hypertensive chronic kidney disease with stage 1 through stage 4 chronic kidney disease, or unspecified chronic kidney disease; N18.9 Chronic kidney disease, unspecified; N40.1 Benign prostatic hyperplasia with lower urinary tract symptoms; R33.8 Other retention of urine; J10.1 Influenza due to other identified influenza virus with other respiratory manifestations
CPT/HCPCS: 0241U-QW; 36415; 71045-TC-FY; 76775-TC; 76856-TC; 80048; 80053; 81003; 82272; 82962; 83516; 83520; 84100; 84155; 84165; 85025; 85027; 85610; 85730; 86038; 86225; 86256; 86803; 87045; 87046; 87086; 87186; 87324; 87340; 87427; 87449; 87517; 93005; 93010; 93970-TC; 97116-GP; 97161-GP; 99285-25; J1644

== ENCOUNTER 2024-05-14 05:17 | Day surgery (SDC) | payer OTHER, BC ==
[2024-05-04 17:02] VITALS: BMI 23.1
[2024-05-14] MEDS ORDERED: PROPOFOL 40 ML ONE (07:24)
[2024-05-14] MEDS ORDERED: MIDAZOLAM HCL 2 MG/2 ML SINGLE DOSE VIAL ONE (07:24)
[2024-05-14] MEDS ORDERED: ePHEDrine SULFATE 50 MG/1 ML AMPULE ONE (07:52)
[2024-05-14] MEDS ORDERED: ONDANSETRON 4 MG/2 ML VIAL ONE (07:54)
[2024-05-14] MEDS ORDERED: DEXAMETHASONE SOD PHOSPHATE 4 MG/1 ML VIAL ONE (07:54)
[2024-05-14] MEDS ORDERED: SEVOFLURANE 250 ML BTL ONE (08:26)
[2024-05-14] MEDS ORDERED: ONDANSETRON 4 MG/2 ML VIAL IVPUSH PRN (08:49)
[2024-05-14] MEDS ORDERED: oxyCODONE HCL 5 MG TABLET PO PRN (08:49)
[2024-05-14] MEDS ORDERED: LACTATED RINGERS SOLUTION 1,000 ML IV SCH (09:00)
[2024-05-14] MEDS ORDERED: DEXTROSE 5%-0.45% SALINE 1,000 ML IV SCH (09:00)
[2024-05-14] MEDS ORDERED: FUROSEMIDE 40 MG/4 ML INJECTABLE VIAL ONE (09:10)
[2024-05-14] MEDS: FUROSEMIDE 40 MG/4 ML INJECTABLE VIAL IVPUSH ONE (09:15)
[2024-05-14] MEDS: ACETAMINOPHEN 1000 MG/100 ML BAG IVPB PRN (09:30)
[2024-05-14] MEDS ORDERED: ACETAMINOPHEN INJECTION 100 ML ONE (09:36)
[2024-05-14 13:04] VITALS: BP 103/69; PULSE 76; RESP 20; TEMP 98
== END 2024-05-14 11:25 | disposition home or self-care (01) ==
LOC: JASU-SURG 05:17
PROVIDERS: ATTEND Urology
PROC: 0VB07ZZ Excision of Prostate, Via Natural or Artificial Opening (ICD-10-PCS; principal; 2024-05-14 07:30)
DX: N40.1 Benign prostatic hyperplasia with lower urinary tract symptoms (principal); R33.8 Other retention of urine
CPT/HCPCS: 88305-TC; 88342-TC; 94760; J0131